=== PATIENT | male | born 1985 | race Caucasian/White ===

== ENCOUNTER 2017-09-19 00:23 | Emergency (ER) | payer BC, OTHER ==
[~2017-09-19] VITALS: Ht 172.7 cm; Wt 98.3 kg
[~2017-09-19 00:23] MED LIST: LRT5 PO
[2017-09-19 00:31] VITALS: O2SAT 96; Ht 172.7 cm; Wt 98.3 kg
[2017-09-19 01:13] LABS: BUN/CREATININE RATIO 10.6 (10-20); CALCIUM 8.4 mg/dl (8.5-10.1); CREATININE 0.86 mg/dl (0.60-1.40); POTASSIUM 4.3 mmol/L (3.5-5.1)
[2017-09-19 02:23] VITALS: BP 135/62; PULSE 115; TEMP 36.6; O2SAT 97
--- NOTE | 2017-09-19 03:07 | EMERGENCY ROOM VISIT NOTE ---
History Report prepared by Elva: Za Leyva Under the Supervision of: Dr. Megan Pedro D.O. 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 The patient presents to the ED by EMS. He was found stumbling downtown. He was incontinent of urine. He denies any fall or head injury. He denies any drug use besides alcohol. He denies any history of diabetes. He does not smoke. 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 Pt denies fall. Review of Systems See HPI for pertinent positives & negatives. A total of 10 systems reviewed and were otherwise negative. Past Medical & Surgical Medical Problems: (1) No Known Active Medical Problems Family History No pertinent family history stated. Social History Alcohol Use: occasionally Drug Use: none Marital Status: single Occupation Status: employed Current/Historical Medications No Active Prescriptions or Reported Meds Allergies Coded Allergies: No Known Allergies (Unverified , 09/19/17) Physical Exam Vital Signs Date Time Temp Pulse Resp B/P (MAP) Pulse Ox O2 Delivery O2 Flow Rate FiO2 09/19/17 02:23 36.6 115 20 135/62 97 Room Air 09/19/17 01:12 126 20 141/66 97 Room Air 09/19/17 00:31 36.4 135 20 166/103 96 Room Air 09/19/17 00:31 96 Room Air 09/19/17 00:31 142 Physical Exam General: Smells of alcohol. Cooperative on exam. HEENT: Head - normocephalic and atraumatic Pupils are equal, round, and reactive to light. Extraocular eye muscles are intact, and sclera are anicteric. Nose - moist nasal mucosa without discharge. Mouth - moist buccal mucosa. Oropharynx is nonerythematous and there is no tonsillar exudate or edema noted. Neck: Supple; no JVD, nuchal rigidity, cervical lymphadenopathy. Heart: Tachycardic rate and regular rhythm. There is a normal S1 and S2 with no murmurs, clicks, or gallops appreciated. Lungs: Clear to auscultation bilaterally with no wheezes, rales, or rhonchi. Abdomen: Soft, completely nontender, nondistended, with good bowel sounds. There are no palpable pulsatile masses or hepatosplenomegaly. There is no guarding, rigidity, or rebound noted. Extremities: No evidence of cyanosis, clubbing, or edema. There are easily palpable peripheral pulses. Skin: warm and dry with good turgor and no rashes. Medical Decision & Procedures Laboratory Results 09/19/17 00:32 Test 09/19/17 00:32 Anion Gap 6.0 mmol/L (3-11) Est Creatinine Clear Calc Drug Dose 141.4 ml/min Estimated GFR () 133.9 Estimated GFR (Non- 115.6 BUN/Creatinine Ratio 10.6 (10-20) Calcium Level 8.4 mg/dl (8.5-10.1) Ethyl Alcohol mg/dL 273.0 mg/dl (0-3) Laboratory results per my review. ED Course 0026: The patient was evaluated in room B4B. A complete history and physical examination were performed. Nursing notes and previous electronic medical records were reviewed. labs were drawn as above. 0135: I reevaluated the patient. He is wide awake. He is getting ready to go to the bathroom. I discussed findings and results with him. He verbalized agreement of the treatment plan. The patient asked if he could be discharged home. 0203: The patient has found a sober ride. 0218: His friends have arrived to take him. He was discharged home. Medical Decision The patient is a 32 year old male who presents to the ED with alcohol intoxication. Differential diagnosis includes alcohol overdose, drug intoxication, hypoglycemia, head trauma. Labs: alcohol 273, normal renal function, glucose 109. This is a 32-year-old male patient who was brought to the emergency department tonight after consuming too much alcohol. He was pleasant and cooperative on exam. He was encouraged to avoid such excessive alcohol use in the future. He was given close follow-up instructions and he'll be discharged home with a sober friend. Medication Reconcilliation Current Medication List: was personally reviewed by me Blood Pressure Screening Patient's blood pressure: Elevated blood pressure Blood pressure disposition: Elevated BP felt to be situational Impression Primary Impression: Alcohol overdose Scribe Attestation The scribe's documentation has been prepared under my direction and personally reviewed by me in its entirety. I confirm that the note above accurately reflects all work, treatment, procedures, and medical decision making performed by me. Departure Information Dispostion Home / Self-Care Prescriptions No Active Prescriptions or Reported Meds Referrals [facility] (PCP) Forms HOME CARE DOCUMENTATION FORM, IMPORTANT VISIT INFORMATION Patient Instructions ED Overdose Alcohol, [facility] Additional Instructions Rest take plenty of clear liquids and a bland diet. Avoid such excessive alcohol use in the future Problem Qualifiers Primary Impression: Alcohol overdose Encounter type: initial encounter Injury intent: accidental or unintentional Qualified Codes: T51.91XA - Toxic effect of unspecified alcohol , accidental (unintentional), initial encounter
== END 2017-09-19 02:24 | disposition home or self-care (01) ==
LOC: EDBD 00:23 → C.EDB 00:25
DX: F10.929 Alcohol use, unspecified with intoxication, unspecified (principal); T51.91XA Toxic effect of unspecified alcohol, accidental (unintentional), initial encounter; Y90.7 Blood alcohol level of 200-239 mg/100 ml